=== PATIENT | male | born 1940 | race Caucasian/White ===

== ENCOUNTER 2018-05-01 06:55 | Day surgery (SDC) | payer MEDICARE, OTHER ==
[~2018-05-01] VITALS: Ht 170.2 cm; Wt 81.2 kg
[~2018-05-01 06:55] MED LIST: ADVAIR 250-501 EACH INH; AMANTADINE100 M1 PO; CALCIUM POLYCA625 MG PO; CLONAZEPAM1 MG PO; ESOMEPRAZOLE MA40 MG PO; FISH OIL 1,0001 EAC3 PO; LEVOTHYROXINE75 MCG PO; LIPITOR20 MG PO; LORATADINE10 MG PO; MAPAP500 M1 PO; MYVITALIFE1 EACH PO; NICOTINE GUM4 MG BUCCAL; OLANZAPINE5 MG PO; POLYETHYLENE GLY1 GM MISC; TRIHEXYPHENIDYL2 MG PO; VENTOLIN HFA18 GM INH
--- NOTE | 2018-05-01 10:14 | NUR ---
05/01/18 1014 America Montalvo 0956 PT ARRIVES TO PACU WITH OPA IN PLACE AND MASK AT 6L O2. PT IS REACTIVE TO STIMULI. BREATHING EVEN AND NON LABORED. 1000 PT HAS GURGLING SOUNDS IN AIRWAY AND REACHING FOR MOUTH. PT ALLOWED OPA TO BE REMOVED AT THIS TIME AND MASK REPLACED. PT ENCOURAGED TO DEEP BREATH AND COUGH. THICK CLEAR MUCUS SPIT INTO TISSUE. 1003 RT AT BEDSIDE FOR INCENTIVE SPIROMETRY. PT PLACED ON ROOM AIR AT THIS TIME. MAINTAINING SATS MID 90'S. PT DROWSY, AWAKE INTERMITTENTLY. VITAL SIGNS STABLE.
--- NOTE | 2018-05-01 10:45 | NUR ---
1020 PT RETURNED FROM PACU, AWAKE. VITALS STABLE. COURSE COUGH NOTED. PT UP TO RESTROOM WITH ASSIST OF 2 RN'S. PT NOTED TO BE INCONTINENT OF SMALL AMOUNT OF URINE. PT STEADY ON FEET. CONTACTED GERARDO PT'S CAREGIVER TO NOTIFY THAT PT IS OUT OF SURGERY. WILL CONTINUE TO MONITOR PT.
--- NOTE | 2018-05-01 11:13 | NUR ---
1100 IN TO CHECK ON PT. WATER AND PUDDING GIVEN TOLERATED WELL. PT STATES HE HAS "A TINSY BIT OF PAIN." DECLINES PAIN MEDICATION. PT ASKING FOR FOOD. BERNADETTE ORDER. WILL CONTINUE TO MONITOR PT.
--- NOTE | 2018-05-01 14:32 | NUR ---
PT WAS CHILLED AND REALLY NEEDED TO GET ANOTHER WARM BLANKET. ARRANGED FOR BLANKET AND PT DRIFTED OFF TO SLEEP.
--- NOTE | 2018-05-02 08:23 | OR ---
[facility] [address], [place] [address] Signed DATE OF OPERATION: 05/01/2018 SURGEON: Sudheer Garcia MD PREOPERATIVE DIAGNOSES: 1. Incarcerated umbilical hernia (12 mm). 2. Mild diastasis recti. POSTOPERATIVE DIAGNOSES: 1. Incarcerated umbilical hernia (12 mm). 2. Mild diastasis recti. PROCEDURE: Primary umbilical herniorrhaphy with intraabdominal Ventralex mesh (6.4 cm). ESTIMATED BLOOD LOSS: None. INDICATIONS: Da is a 77-year-old gentleman with significant schizophrenia. He resides at our [facility] with caregivers. He stays very active and goes our athletic club twice a week to work out and exercise. He has been complaining of pain and swelling at the umbilicus. He was taken to his primary care provider. He was noted to have an incarcerated tender umbilical hernia. He was therefore asked to see me as a local general surgeon. He thinks it has been a year maybe less. He is not sure exactly. I met with Da and his caregiver in the office. I gave him a [employer] brochure on hernias. I circled the sections relevant to umbilical hernias. I explained to Da the difference between a primary suture repair and a mesh repair. We also talked about his diastasis recti. We did review the difference between a primary suture repair and a mesh repair. They are very aware that a primary suture repair carries a much higher recurrent hernia rate starting at 3% and above. With mesh, it is 1% or less. There is risk to the surgery including, but not limited to bleeding, infection, scarring, change in contour of the skin, damage to bowel, infection of mesh requiring removal, recurrent hernias, and chronic pain. They had expressed understanding and wished to proceed. They understand the expected intraop and postop course. DESCRIPTION OF PROCEDURE: Da was taken into our operating room and placed in the supine position under general endotracheal tube anesthesia. He was given preoperative antibiotics along with subcutaneous heparin. SCDs were utilized. He was prepped and draped in the usual Electronically Signed By: SUDHEER GARCIA MD 05/02/18 0823 PATIENT NAME: DA ISAAC OPERATIVE REPORT DATE OF : 42 REPORT #: [id number] PHYSICIAN: SUDHEER GARCIA MD PCP: CHANI MORENO MD REPORT IS CONFIDENTIAL AND NOT TO BE RELEASED WITHOUT AUTHORIZATION [facility] [address], [place] [address] Signed sterile fashion. Since he is allergic to iodine, we used our ChloraPrep. Even with pharmacologic paralysis, we could not reduce the hernia. After this, a standard infraumbilical transverse incision was made and carried down through the tissue bluntly and with the cautery. The umbilical hernia sac was from the fascial defect with the help of the cautery. The herniated omentum was reduced with the help of a Pean clamp. That tissue was healthy enough and the fascial defect was 12 mm dominguez. We were able to reduce that back inside the abdomen without difficulty. The entire hernia sac was excised and passed off the field. We then chose our 6.4 cm round Ventralex mesh and we placed that in the abdominal cavity and brought it up flush against the posterior abdominal wall. His omentum was completely past an inferior to the umbilicus covering all the intestine. The fascial defect was then closed transversely with a #1 running Prolene suture. Several passes of the suture went through the tab on the mesh to hold it in place. The tab was then cut flush with the level of fascia. Local anesthetic was copiously injected in his abdominal wall and subcutaneous tissues. The wound was irrigated and suctioned out until clear. A 2-0 PDS suture was used to bring the umbilical skin back down the midline fascia. The dermis was then reapproximated with interrupted 3-0 subcuticular Monocryl sutures. A 6-0 fast absorbing plain gut suture was then used to close the skin edges. Dry gauze and tape were then applied. Da was then awakened from his anesthesia, extubated in the OR, and taken to recovery room in stable condition. Sudheer Garcia MD ALB/MODL /[id number] cc: MD Stefanie Palacios NP Andrew L Bower, MD Copies: STEFANIE BRAGG COMMUTATOR PRESSER Electronically Signed By: SUDHEER GARCIA MD 05/02/18 0823 PATIENT NAME: DA ISAAC OPERATIVE REPORT DATE OF : 42 REPORT #: [id number] PHYSICIAN: SUDHEER GARCIA MD PCP: CHANI MORENO MD REPORT IS CONFIDENTIAL AND NOT TO BE RELEASED WITHOUT AUTHORIZATION [address] [address] Signed SUDHEER GARCIA MD ~ Electronically Signed By: SUDHEER GARCIA MD 05/02/18822 PATIENT NAME: DA ISAAC OPERATIVE REPORT DATE OF : 42 REPORT #: [id number] PHYSICIAN: SUDHEER GARCIA MD PCP: CHANI MORENO MD REPORT IS CONFIDENTIAL AND NOT TO BE RELEASED WITHOUT AUTHORIZATION
== END 2018-05-01 11:50 | disposition home or self-care (01) ==
LOC: DS 06:55
PROVIDERS: Colon & Rectal Surgery
PROC: 0WUF0JZ Supplement Abdominal Wall with Synthetic Substitute, Open Approach (ICD-10-PCS; principal; 2018-05-01 08:30)
DX: K42.0 Umbilical hernia with obstruction, without gangrene (principal); M62.08 Separation of muscle (nontraumatic), other site; I10 Essential (primary) hypertension; F20.9 Schizophrenia, unspecified; J45.909 Unspecified asthma, uncomplicated; E78.00 Pure hypercholesterolemia, unspecified; Z79.899 Other long term (current) drug therapy; Z88.8 Allergy status to other drugs, medicaments and biological substances; Z87.891 Personal history of nicotine dependence
CPT/HCPCS: 00750; C1781; J0330; J0690; J1100; J1644; J1885; J2250; J2405; J2704; J3010

== ENCOUNTER 2019-12-02 06:39 | Day surgery (SDC) | payer MEDICARE, OTHER ==
[~2019-12-02] VITALS: Ht 170.2 cm; Wt 77.1 kg
--- NOTE | 2019-12-02 09:56 | NUR ---
12/02/19 0956 [place] 0926 PT ARRIVED TO PACU ON 6L VIA MASK, VSS. RESP EVEN AND UNLABORED. 0931 PT WAKES AND STARTS MOVING AND TALKING TO RN. PT DOES NOT HAVE DENTURES AND SPEECH IS HARD TO UNDERSTAND PER ACADEMIC AFFAIRS ASSISTANT. O2 MASK REMOVED. 0936 MD AT BEDSIDE AND 4X4 DRESING WITH KURLEX PER MD PLACED ON RIGHT UPPER LEG. PT REPORTS "A LITTLE BIT OF PAIN ON EAR." 0947 PT REPORTS "EAR HURTING A LOT" AND POINTS TO 8/10 PAIN ON FACES SCALE. PAIN MEDICATION GIVEN. 0954 PT ASKING FOR WATER, PT SIPPING WATER AND SITTING IN HIGH FOWLERS. 0955 O2 SAT DECREASED TO 89% AND RN ENCOURAGES DEEP BREATHING AND O2 INCREASED TO MID 90S.
--- NOTE | 2019-12-02 10:49 | OR ---
[facility] [address], [place] [address] Signed DATE OF OPERATION: 12/02/2019 SURGEON: Homer Byers MD PREOPERATIVE DIAGNOSES: Right nasal cheek and ear lesions. POSTOPERATIVE DIAGNOSES: Right nasal cheek and ear lesions. PROCEDURE: Excision of right nasal cheek and ear lesions with partial orbicular resection and split-thickness skin graft repair. ANESTHESIA: General LMA. SENIOR COMPUTER SPECIALIST: Russell. PREOPERATIVE HISTORY: Da is a 79-year-old male with facial lesions suspicious for carcinoma. He had a partial right auricular resection by myself 10+ years ago. He has had a recurrence of the lesion on the bora of the right ear extending down in the ear canal, taken to the operating room for the above-mentioned procedures. OPERATIVE PROCEDURE AND FINDINGS: After informed consent, the patient was taken to the operating room, placed in supine position where general LMA anesthesia was induced. The patient and procedure were verified. The right face and right neck were sterilely prepped and draped. Right thigh sterilely prepped and draped. The nasal lesion was on the nasal dorsal skin just to the right of midline up near the glabella. The lesion measures about 5-6 mm was raised, crusted very suspicious for neoplasia, 1% lidocaine with epi was injected around the lesion. The excision was performed with 1-2 mm margins. Elliptical excision, total length of excision approximately 3 cm. The wound edges were elevated to allow for primary closure. Hemostasis was obtained with needle point cautery. The wound was then closed with 4-0 interrupted Vicryl subcu and 5-0 running nylon in the skin. The right cheek lesion was just in front of the tragus measured about a mm in greatest diameter. This was a raised crusted lesion suspicious for neoplasia. The 1% lidocaine Electronically Signed By: HOMER BYERS MD 12/02/19 1049 PATIENT NAME: DA ISAAC OPERATIVE REPORT DATE OF : 42 REPORT #: [id number] PHYSICIAN: HOMER BYERS MD PCP: CHANI MORENO MD REPORT IS CONFIDENTIAL AND NOT TO BE RELEASED WITHOUT AUTHORIZATION [facility] [address], [place] [address] Signed with epi was injected around the lesion and the lesion was excised with millimeter to margins elliptical pattern long-axis, superior, inferior. The lesion was completely excised. Hemostasis obtained with needle point cautery and the closure was with 5-0 running nylon. The right ear lesion was then approached. The lesion was in the bora extending down into the ear canal posteriorly. The partial auricular excision previously performed consisted of the upper part of the auricle, basically the remaining part of the inferior auricle extending down into the bora and medial ear canal was removed. A 1% lidocaine with epi was injected around the auricle. The excision was made with needle point cautery and the specimen sent to pathology. The medial portion of the lesion was excised separately and sent as a separate specimen. The lesion extended down into the bony ear canal near the eardrum out onto the bora and appeared grossly all tumor was excised. The wound was copiously lavaged. Hemostasis was obtained with needle point cautery. The upper portion of the excision was closed primarily with 5-0 running nylon. The inferior portion extending down in the ear canal was then prepared with a split-thickness skin graft, this was taken from the right thigh about a 5 x 5 cm skin graft was taken with the dermatome and the skin graft was meshed, placed into the recipient site, sutured into place. Merocel pack was placed in the medial ear canal. The grafts were sutured into place, circumferential 4-0 interrupted Vicryl. A bolster was then placed with Vaseline gauze, 0.5 inch Nu Gauze and a bolster tied in place with a Vicryl stitch. Mastoid dressing was applied. The skin was cleansed. Neosporin ointment applied to the suture lines. Sterile dressing was applied to the skin graft site on the right thigh. Mastisol applied to the skin and an Opsite dressing. The patient was then awakened, extubated, transported to the recovery room in good condition. No complications. Blood loss around 100 mL. SPECIMENS: 1. Right nasal lesion. 2. Right cheek lesion. 3. Right ear. 4. Anterior right ear margin, all sent in formalin for permanent specimens. DRAINS: No drains. COMPLICATIONS: No complications. Electronically Signed By: HOMER BYERS MD 12/02/19 1049 PATIENT NAME: DA ISAAC OPERATIVE REPORT DATE OF : 42 REPORT #: [id number] PHYSICIAN: HOMER BYERS MD PCP: CHANI MORENO MD REPORT IS CONFIDENTIAL AND NOT TO BE RELEASED WITHOUT AUTHORIZATION [address] [address] Signed Homer Byers MD /MODL /[id number] Copies: ~ Electronically Signed By: HOMER BYERS MD 12/02/19 1049 PATIENT NAME: DA ISAAC OPERATIVE REPORT DATE OF : 42 REPORT #: [id number] PHYSICIAN: HOMER BYERS MD PCP: CHANI MORENO MD REPORT IS CONFIDENTIAL AND NOT TO BE RELEASED WITHOUT AUTHORIZATION
--- NOTE | 2019-12-12 09:56 | PATH ---
[facility] [address], [place] [address] Signed SPECIMEN(S): A RIGHT NASAL LESION SPECIMEN(S): B RIGHT CHEEK SPECIMEN(S): C RIGHT EAR SPECIMEN(S): D RIGHT EAR, ANTERIOR MARGIN SPECIMEN SOURCE: A. RIGHT NASAL LESION B. RIGHT CHEEK C. RIGHT EAR D. RIGHT EAR, ANTERIOR MARGIN CLINICAL HISTORY: Pre/Postop Diagnosis: Right ear cancer, nasal lesion. FINAL PATHOLOGIC DIAGNOSIS: A. Nasal lesion, right: - Invasive, well differentiated squamous cell carcinoma, ulcerated. - This carcinoma extends to the base of the excision. - The peripheral margins are negative for malignancy. B. Right cheek: - Hyperplastic actinic keratosis. - This lesion is present in association with skin with marked solar elastosis. C. Right ear, excision: - Invasive, well to moderately differentiated squamous cell carcinoma. - A cauterized superior margin is negative for tumor, although invasive carcinoma is found within a fraction of 1 mm of it. - Invasive carcinoma extends to the cauterized deep margin in the superior portion of this excision and is identified in the vicinity of the cartilage. D. Right ear, anterior margin: - Invasive, well to moderately differentiated squamous cell carcinoma extending to an inked and cauterized surgical resection margin. COMMENT: Regarding specimen B, buds of typical keratinocytes emanate from the undersurface of the epidermis. Invasive carcinoma is not identified. ARTUR:gama:brian:C1NR MICROSCOPIC EXAMINATION: Histologic sections of all submitted blocks are examined by light microscopy. These findings, together with the gross examination, support the pathologic diagnosis. PATIENT NAME: HASMUKH ISAAC PATHOLOGY DATE OF : 42 REPORT #: [id number] PHYSICIAN: DANO PATHOLOGY PCP: CHANI MORENO MD REPORT IS CONFIDENTIAL AND NOT TO BE RELEASED WITHOUT AUTHORIZATION [facility] [address], [place] [address] Signed GROSS DESCRIPTION: Four specimens are received in four containers, labeled "FM." A. The specimen, labeled "FM, right nasal lesion," is received in formalin and consists of one unoriented skin ellipse that measures 1.7 x 1.0 x 0.3 cm. The skin surface shows irregular shaped, dusky red, hemorrhagic papule that measures 0.7 cm in greatest dimension. The papule abuts surgical margins. Specimen is inked and serially sectioned. Specimen is entirely submitted in cassette (A1). B. The specimen, labeled "FM, right cheek," is received in formalin and consists of one unoriented skin that measures 1.1 x 0.5 x 0.3 cm. The skin surface shows dark red, irregular shaped macule that measures 0.2 cm in dimension. The specimen is inked and trisected. Specimen is entirely submitted in cassette (B1). C. The specimen, labeled "FM, right ear," is received in formalin and consists of part of the ear with helix, antihelix, tragus, antitragus. The skin on antitragus and cavum conchae shows ulcerous, irregular shaped defect that measures 1.1 x 1.2 cm. The defect abuts surgical margins. The remaining of the skin is pink-norman, smooth. The specimen is inked on surgical resection margin, superior half blue, inferior half black. The lesion is excised en bloc and entirely submitted as follows: Cassette Summary: (C1-C7) En bloc lesion, entirely submitted (C8) Superior and inferior resection margins, shave D. The specimen, labeled "FM, right ear, anterior margin," is received in formalin and consists of one irregular shaped piece of skin tissue that measures 2.5 x 0.7 x 0.7 cm. The skin surface shows brown hair. The specimen is inked and serially sectioned. Specimen is entirely submitted in cassettes (D1-D2). JS (under the direct supervision of a pathologist) The Gross Description was prepared using a voice recognition system. The report was reviewed for accuracy; however, sound-alike word errors, addition and/or deletions may occur. If there is any question about this report, please contact Client Services. PERFORMING LABORATORY: The technical component was performed by [facility], [address] [place] [id number] (Moving Worker: Shy Silva MD; CLIA# [id number]). The PATIENT NAME: HASMUKH ISAAC PATHOLOGY DATE OF : 42 REPORT #: [id number] PHYSICIAN: DANO PATHOLOGY PCP: CHANI MORENO MD REPORT IS CONFIDENTIAL AND NOT TO BE RELEASED WITHOUT AUTHORIZATION [facility] [address], [place] [address] Signed professional interpretation [facility], [address] [place] [address]. Diagnostician: Kanu Brewer MD Pathologist Electronically Signed 12/12/2019 Copies: ~ PATIENT NAME: HASMUKH ISAAC Luis Alfredo PATHOLOGY DATE OF : 42 REPORT #: [id number] PHYSICIAN: DANO PEÑA PCP: CHANI MORENO MD REPORT IS CONFIDENTIAL AND NOT TO BE RELEASED WITHOUT AUTHORIZATION
== END 2019-12-02 11:30 | disposition home or self-care (01) ==
LOC: DS 06:39 → OPS 06:39 → DS 08:00 → OPS 11:30
PROVIDERS: ATTEND Otolaryngology
PROC: 0HB1XZZ Excision of Face Skin, External Approach (ICD-10-PCS; 2019-12-02)
PROC: 0HR2X74 Replacement of Right Ear Skin with Autologous Tissue Substitute, Partial Thickness, External Approach (ICD-10-PCS; 2019-12-02)
PROC: 0HB2XZZ Excision of Right Ear Skin, External Approach (ICD-10-PCS; principal; 2019-12-02 06:45)
PROC: 0HB4XZZ Excision of Neck Skin, External Approach (ICD-10-PCS; 2019-12-02 06:45)
DX: C44.222 Squamous cell carcinoma of skin of right ear and external auricular canal (principal); C44.321 Squamous cell carcinoma of skin of nose; L57.0 Actinic keratosis; L57.8 Other skin changes due to chronic exposure to nonionizing radiation; I10 Essential (primary) hypertension; J45.909 Unspecified asthma, uncomplicated; K21.9 Gastro-esophageal reflux disease without esophagitis; F20.9 Schizophrenia, unspecified; Z79.899 Other long term (current) drug therapy
CPT/HCPCS: 88305; J1100; J2001; J2405; J2704; J3010; J7121